=== PATIENT | male | born 1935 | race Caucasian/White ===

== ENCOUNTER → 2019-11-16 | Emergency (ER) | payer OTHER ==
[~2019-11-16] VITALS: Ht 180.3 cm; Wt 86.2 kg
[2019-11-16 09:08] LABS: Basophils # (auto) 0 10 ^3/uL (0-0.2); Basophils % (auto) 0.1 % (0.0-2.0); Eosinophils # (auto) 0 10 ^3/uL (0-0.8); Hemoglobin 12.7 g/dL (13.5-17.5); Lymphocytes # (auto) 0.6 10 ^3/uL (0.4-5.4); Lymphocytes % (auto) 5.6 % (10.0-50.0); Mean Corpuscular Hemoglobin 31.6 pg (28.0-32.0); Mean Corpuscular Hgb Conc. 34.2 g/dL (32.0-36.0); Mean Corpuscular Volume 92.4 fL (80.0-100.0); Monocytes # (auto) 0.9 10 ^3/uL (0-1.3); Monocytes % (auto) 7.6 % (0.0-12.0); Neutrophils # (auto) 9.7 10 ^3/uL (1.6-8.6); Neutrophils % (auto) 86.7 % (37.0-80.0); Nucleated Red Blood Cells % 0.1 %; Platelet Count (auto) 191 10^3/uL (140-450); Red Blood Cells 4.01 10^6/uL (4.5-5.90); Red Cell Distribution Width 13.8 % (11.8-14.3); White Blood Cell 11.2 10^3/uL (4.4-10.8)
[2019-11-16 09:26] LABS: Albumin 3.9 g/dL (3.4-5.0); Calcium 9.1 mg/dL (8.5-10.1); Potassium 4.5 mmol/L (3.5-5.1)
[2019-11-16 09:32] LABS: Bilirubin, Total 0.7 mg/dL (0.2-1.0); Total Protein 7.6 g/dL (6.4-8.2)
[2019-11-16 11:05] LABS: Urine Bacteria NONE SEEN /hpf (None Seen); Urine Blood 1+ /uL (Negative); Urine Specific Gravity 1.011 (1.001-1.035); Urine WBC 9 /hpf (0 - 3)
[2019-11-16 12:30] VITALS: BP 160/53
== END | disposition home or self-care (01) ==
LOC: EDUNIT# 08:00 → EDBD 08:11 → ER 08:11
DX: F03.90 Unspecified dementia, unspecified severity, without behavioral disturbance, psychotic disturbance, mood disturbance, and anxiety (principal); N39.0 Urinary tract infection, site not specified; I10 Essential (primary) hypertension; E11.9 Type 2 diabetes mellitus without complications; I25.10 Atherosclerotic heart disease of native coronary artery without angina pectoris; Z88.8 Allergy status to other drugs, medicaments and biological substances
CPT/HCPCS: 36415; 70450; 71045; 73562; 74176; 80053; 81001; 84484; 85025; 93005

== ENCOUNTER 2019-11-24 13:40 | Inpatient (IN) | payer OTHER ==
[~2019-11-24] VITALS: Ht 170.2 cm; Wt 74.2 kg
[2019-11-24] MEDS ORDERED: SODIUM CHLORIDE 0.9% 1,000 ML IVB ONE (14:05)
[2019-11-24] MEDS ORDERED: TETANUS-DIPTH-ACEL PERTUSSIS 0.5ML SYR Tdap IM ONE (14:45)
[2019-11-24 14:59] LABS: Basophils # (auto) 0 10 ^3/uL (0-0.2); Basophils % (auto) 0.6 % (0.0-2.0); Eosinophils # (auto) 0.2 10 ^3/uL (0-0.8); Eosinophils % (auto) 3.1 % (0.0-7.0); Hematocrit 38.5 % (41.0-53.0); Hemoglobin 12.7 g/dL (13.5-17.5); Lymphocytes # (auto) 1.4 10 ^3/uL (0.4-5.4); Lymphocytes % (auto) 20.6 % (10.0-50.0); Mean Corpuscular Hemoglobin 30.7 pg (28.0-32.0); Mean Corpuscular Hgb Conc. 32.9 g/dL (32.0-36.0); Mean Corpuscular Volume 93.3 fL (80.0-100.0); Monocytes # (auto) 0.8 10 ^3/uL (0-1.3); Monocytes % (auto) 11.2 % (0.0-12.0); Neutrophils # (auto) 4.5 10 ^3/uL (1.6-8.6); Neutrophils % (auto) 64.5 % (37.0-80.0); Platelet Count (auto) 275 10^3/uL (140-450); Red Blood Cells 4.12 10^6/uL (4.5-5.90); Red Cell Distribution Width 14.1 % (11.8-14.3)
[2019-11-24 15:10] LABS: INR 1.01 (0.9-1.15); Partial Thromboplastin Time 26.2 sec (23.64-32.05)
[2019-11-24 15:17] LABS: Albumin 3.4 g/dL (3.4-5.0); Anion Gap 8 (5-15); Calcium 9.1 mg/dL (8.5-10.1); Carbon Dioxide 26 mmol/L (21-32); Chloride 108 mmol/L (98-107); Glucose 104 mg/dL (74-106); Magnesium 2.1 mg/dL (1.6-2.6); Potassium 4.1 mmol/L (3.5-5.1); Sodium 142 mmol/L (136-145)
[2019-11-24 15:23] LABS: Alanine Aminotransferase 38 U/L (16-61); Alkaline Phosphatase 85 U/L (45-117); Aspartate Aminotransferase 24 U/L (15-37); Bilirubin, Total 0.4 mg/dL (0.2-1.0); Blood Urea Nitrogen 22 mg/dL (7-18); GFR African American 87 mL/min; GFR Non-African American 72 mL/min; Total Protein 7.2 g/dL (6.4-8.2)
[2019-11-24 17:16] LABS: Urine Bacteria NONE SEEN /hpf (None Seen); Urine Blood Negative /uL (Negative); Urine Specific Gravity 1.015 (1.001-1.035); Urine WBC 51 /hpf (0 - 3); Urine WBC Clumps PRESENT /hpf (None Seen)
[2019-11-24] MEDS ORDERED: ONDANSETRON HCL 4 MG/2 ML VIAL IV PRN (17:45)
[2019-11-24] MEDS ORDERED: cefTRIAXone 1GM/50ML D5W 50 ML IV ONE ×2 (17:45)
[2019-11-24] MEDS ORDERED: MORPHINE SULF INJ 2 MG/ML SYRINGE 1ML IV PRN (17:45)
[2019-11-24] MEDS ORDERED: DEXTROSE (50%) 50ML SYRG IV PRN (17:45)
[2019-11-24] MEDS ORDERED: NITROGLYCERIN 0.4 MG SL TAB SL PRN (17:45)
[2019-11-24] MEDS: TAMSULOSIN HYDROCHLORIDE 0.4 MG CAP PO SCH (18:00)
[2019-11-24] MEDS: traMADol HCL 50 MG TAB PO PRN (18:44)
[2019-11-24] MEDS: SODIUM CHLORIDE 0.9% 1,000 ML IV SCH (18:45)
[2019-11-24 20:15] VITALS: BP 140/39
[2019-11-24] MEDS: ACCU-CHEK COMFORT CURVE STRIP VI SCH (22:00)
[2019-11-24] MEDS: InsuLIN REG 1unit/0.01ml Soln (100units/ml) SC SCH (23:24)
[2019-11-24 23:34] VITALS: BP 149/65
[2019-11-25] MEDS: SODIUM CHLORIDE 0.9% 1,000 ML IV SCH ×3 (03:15→20:58)
[2019-11-25 04:30] VITALS: BP 158/61
[2019-11-25 05:56] LABS: Albumin 3.1 g/dL (3.4-5.0); Calcium 8.5 mg/dL (8.5-10.1); Potassium 3.8 mmol/L (3.5-5.1)
[2019-11-25 06:10] LABS: Bilirubin, Total 0.3 mg/dL (0.2-1.0); Total Protein 6.4 g/dL (6.4-8.2)
[2019-11-25] MEDS: ACCU-CHEK COMFORT CURVE STRIP VI SCH ×4 (07:09→20:57)
[2019-11-25] MEDS: InsuLIN REG 1unit/0.01ml Soln (100units/ml) SC SCH ×4 (07:10→21:39)
[2019-11-25] MEDS ORDERED: IBUP600T27 PO (07:50)
[2019-11-25] MEDS ORDERED: HYDR1TAB97 PO (07:50)
[2019-11-25] MEDS ORDERED: GLIP5TAB12 PO ×2 (07:50→07:54)
[2019-11-25] MEDS ORDERED: LOSA-69 PO (07:50)
[2019-11-25] MEDS ORDERED: QUET25TA37 PO (07:50)
[2019-11-25] MEDS ORDERED: METF-370 PO (07:50)
[2019-11-25] MEDS ORDERED: AMLO5TAB15 PO (07:50)
[2019-11-25] MEDS ORDERED: RIS1T PO (07:50)
[2019-11-25] MEDS ORDERED: TAMS0.4C36 PO (07:50)
[2019-11-25] MEDS ORDERED: SERT-274 PO (07:50)
[2019-11-25] MEDS ORDERED: ASPI-404 PO (07:50)
[2019-11-25] MEDS ORDERED: TEMA7.5C PO (07:50)
[2019-11-25 08:00] VITALS: BP 152/85
[2019-11-25] MEDS: LABETALOL HCL 5 MG/ML 4ML SYRINGE IV PRN (08:03)
[2019-11-25] MEDS: ASPirin 81 mg TAB PO SCH (09:57)
[2019-11-25] MEDS: cefTRIAXone 1GM/50ML D5W 50 ML IV SCH (09:57)
[2019-11-25] MEDS ORDERED: risperiDONE 1 MG TAB PO SCH (10:00)
[2019-11-25 10:33] LABS: Basophils # (auto) 0.1 10 ^3/uL (0-0.2); Basophils % (auto) 1.2 % (0.0-2.0); Eosinophils # (auto) 0.2 10 ^3/uL (0-0.8); Eosinophils % (auto) 3.2 % (0.0-7.0); Hematocrit 37.7 % (41.0-53.0); Hemoglobin 12.3 g/dL (13.5-17.5); Lymphocytes # (auto) 1.4 10 ^3/uL (0.4-5.4); Lymphocytes % (auto) 20.9 % (10.0-50.0); Mean Corpuscular Hemoglobin 30.6 pg (28.0-32.0); Mean Corpuscular Hgb Conc. 32.7 g/dL (32.0-36.0); Mean Corpuscular Volume 93.5 fL (80.0-100.0); Monocytes # (auto) 0.7 10 ^3/uL (0-1.3); Monocytes % (auto) 9.8 % (0.0-12.0); Neutrophils # (auto) 4.4 10 ^3/uL (1.6-8.6); Neutrophils % (auto) 64.9 % (37.0-80.0); Nucleated Red Blood Cells % 0.1 %; Platelet Count (auto) 267 10^3/uL (140-450); Red Blood Cells 4.03 10^6/uL (4.5-5.90); Red Cell Distribution Width 14.2 % (11.8-14.3); White Blood Cell 6.7 10^3/uL (4.4-10.8)
[2019-11-25 12:00] VITALS: BP 135/81
[2019-11-25] MEDS: ACETAMINOPHEN 500 MG TAB PO PRN (15:22)
[2019-11-25] MEDS ORDERED: OXYBUTYNIN CHL 5 MG TAB PO ONE (16:45)
[2019-11-25] MEDS: TAMSULOSIN HYDROCHLORIDE 0.4 MG CAP PO SCH (16:59)
[2019-11-25 17:00] VITALS: BP 146/79
[2019-11-25] MEDS: risperiDONE 1 MG TAB PO SCH (21:39)
[2019-11-25] MEDS: OXYBUTYNIN CHL 5 MG TAB PO SCH (21:39)
[2019-11-25] MEDS: SERTRALINE HCL 50 MG TAB PO SCH (21:39)
[2019-11-25] MEDS: TEMAZEPAM 15 MG CAP PO PRN (21:39)
[2019-11-25 22:00] VITALS: BP 143/70
[2019-11-26 05:00] VITALS: BP 141/69
[2019-11-26] MEDS: OXYBUTYNIN CHL 5 MG TAB PO SCH ×3 (06:26→22:02)
[2019-11-26] MEDS: InsuLIN REG 1unit/0.01ml Soln (100units/ml) SC SCH ×4 (06:27→22:00)
[2019-11-26] MEDS: ACCU-CHEK COMFORT CURVE STRIP VI SCH ×4 (06:27→22:02)
[2019-11-26 08:00] VITALS: BP 137/87
[2019-11-26] MEDS: cefTRIAXone 1GM/50ML D5W 50 ML IV SCH (08:59)
[2019-11-26] MEDS: amLODIPine BESYLATE 5 MG TAB PO SCH (08:59)
[2019-11-26 09:00] VITALS: BP 137/87
[2019-11-26] MEDS: QUEtiapine FUMARATE 25 MG TAB PO SCH (09:00)
[2019-11-26] MEDS: LOSARTAN POTASSIUM 50 MG TAB PO SCH (09:00)
[2019-11-26] MEDS: ASPirin 81 mg TAB PO SCH (09:00)
[2019-11-26] MEDS: risperiDONE 1 MG TAB PO SCH ×2 (09:00→22:02)
[2019-11-26] MEDS: SODIUM CHLORIDE 0.9% 1,000 ML IV SCH ×2 (09:00→19:35)
[2019-11-26 13:00] VITALS: BP 153/75
[2019-11-26 17:00] VITALS: BP 154/74
[2019-11-26] MEDS: TAMSULOSIN HYDROCHLORIDE 0.4 MG CAP PO SCH (17:41)
[2019-11-26] MEDS: SERTRALINE HCL 50 MG TAB PO SCH (22:02)
[2019-11-27] MEDS: SODIUM CHLORIDE 0.9% 1,000 ML IV SCH ×2 (03:48→15:55)
[2019-11-27 05:39] LABS: Basophils # (auto) 0 10 ^3/uL (0-0.2); Basophils % (auto) 0.5 % (0.0-2.0); Eosinophils # (auto) 0.1 10 ^3/uL (0-0.8); Eosinophils % (auto) 2.3 % (0.0-7.0); Hematocrit 35.9 % (41.0-53.0); Hemoglobin 12.2 g/dL (13.5-17.5); Lymphocytes # (auto) 1.3 10 ^3/uL (0.4-5.4); Lymphocytes % (auto) 20.5 % (10.0-50.0); Mean Corpuscular Hemoglobin 31.4 pg (28.0-32.0); Mean Corpuscular Volume 92.3 fL (80.0-100.0); Monocytes # (auto) 0.6 10 ^3/uL (0-1.3); Monocytes % (auto) 9.4 % (0.0-12.0); Neutrophils # (auto) 4.3 10 ^3/uL (1.6-8.6); Neutrophils % (auto) 67.3 % (37.0-80.0); Platelet Count (auto) 254 10^3/uL (140-450); Red Blood Cells 3.89 10^6/uL (4.5-5.90); Red Cell Distribution Width 13.9 % (11.8-14.3); White Blood Cell 6.4 10^3/uL (4.4-10.8)
[2019-11-27 05:53] LABS: Albumin 3.1 g/dL (3.4-5.0); Calcium 8.1 mg/dL (8.5-10.1); Potassium 3.6 mmol/L (3.5-5.1)
[2019-11-27 05:57] LABS: Bilirubin, Total 0.7 mg/dL (0.2-1.0); Total Protein 6.3 g/dL (6.4-8.2)
[2019-11-27] MEDS: InsuLIN REG 1unit/0.01ml Soln (100units/ml) SC SCH ×4 (06:20→22:00)
[2019-11-27] MEDS: OXYBUTYNIN CHL 5 MG TAB PO SCH ×3 (06:20→22:03)
[2019-11-27] MEDS: ACCU-CHEK COMFORT CURVE STRIP VI SCH ×4 (06:20→22:04)
[2019-11-27 07:08] LABS: BUN/Creatinine Ratio 14.1
[2019-11-27 08:00] VITALS: BP 150/77
[2019-11-27 09:00] VITALS: BP 150/77
[2019-11-27] MEDS: cefTRIAXone 1GM/50ML D5W 50 ML IV SCH (09:33)
[2019-11-27] MEDS: amLODIPine BESYLATE 5 MG TAB PO SCH (09:34)
[2019-11-27] MEDS: QUEtiapine FUMARATE 25 MG TAB PO SCH (09:35)
[2019-11-27] MEDS: LOSARTAN POTASSIUM 50 MG TAB PO SCH (09:35)
[2019-11-27] MEDS: ASPirin 81 mg TAB PO SCH (09:35)
[2019-11-27] MEDS: risperiDONE 1 MG TAB PO SCH ×2 (09:35→22:03)
[2019-11-27 13:00] VITALS: BP 143/70
[2019-11-27 16:32] VITALS: BP 156/68
[2019-11-27] MEDS: TAMSULOSIN HYDROCHLORIDE 0.4 MG CAP PO SCH (18:35)
[2019-11-27 21:41] VITALS: BP 140/81
[2019-11-27] MEDS: SERTRALINE HCL 50 MG TAB PO SCH (22:04)
[2019-11-28] MEDS: SODIUM CHLORIDE 0.9% 1,000 ML IV SCH ×3 (02:02→21:35)
[2019-11-28 05:05] VITALS: BP 125/55
[2019-11-28 06:10] LABS: Basophils # (auto) 0 10 ^3/uL (0-0.2); Basophils % (auto) 0.6 % (0.0-2.0); Eosinophils # (auto) 0.2 10 ^3/uL (0-0.8); Hematocrit 35.3 % (41.0-53.0); Hemoglobin 11.9 g/dL (13.5-17.5); Lymphocytes # (auto) 1.1 10 ^3/uL (0.4-5.4); Lymphocytes % (auto) 18.1 % (10.0-50.0); Mean Corpuscular Hemoglobin 31.2 pg (28.0-32.0); Mean Corpuscular Hgb Conc. 33.8 g/dL (32.0-36.0); Mean Corpuscular Volume 92.1 fL (80.0-100.0); Monocytes # (auto) 0.6 10 ^3/uL (0-1.3); Monocytes % (auto) 9.6 % (0.0-12.0); Neutrophils # (auto) 4.1 10 ^3/uL (1.6-8.6); Neutrophils % (auto) 68.7 % (37.0-80.0); Platelet Count (auto) 264 10^3/uL (140-450); Red Blood Cells 3.83 10^6/uL (4.5-5.90); Red Cell Distribution Width 13.5 % (11.8-14.3); White Blood Cell 5.9 10^3/uL (4.4-10.8)
[2019-11-28] MEDS: ACCU-CHEK COMFORT CURVE STRIP VI SCH ×4 (06:24→21:54)
[2019-11-28] MEDS: OXYBUTYNIN CHL 5 MG TAB PO SCH ×3 (06:24→21:54)
[2019-11-28] MEDS: InsuLIN REG 1unit/0.01ml Soln (100units/ml) SC SCH ×4 (06:25→22:09)
[2019-11-28 06:28] LABS: Calcium 7.8 mg/dL (8.5-10.1); Potassium 3.4 mmol/L (3.5-5.1)
[2019-11-28 06:31] LABS: BUN/Creatinine Ratio 14.6; Bilirubin, Total 0.7 mg/dL (0.2-1.0); Total Protein 6.4 g/dL (6.4-8.2)
[2019-11-28 08:00] VITALS: BP 147/74
[2019-11-28] MEDS: cefTRIAXone 1GM/50ML D5W 50 ML IV SCH (09:17)
[2019-11-28] MEDS: ASPirin 81 mg TAB PO SCH (09:40)
[2019-11-28] MEDS: QUEtiapine FUMARATE 25 MG TAB PO SCH ×2 (09:40→12:30)
[2019-11-28] MEDS: risperiDONE 1 MG TAB PO SCH ×3 (09:40→21:54)
[2019-11-28] MEDS: amLODIPine BESYLATE 5 MG TAB PO SCH (09:40)
[2019-11-28] MEDS: LOSARTAN POTASSIUM 50 MG TAB PO SCH ×2 (09:40→12:38)
[2019-11-28] MEDS ORDERED: HALOPERIDOL LACTATE 5 MG/ML INJ VIAL IM PRN (12:15)
[2019-11-28 13:00] VITALS: BP 133/55
[2019-11-28 17:00] VITALS: BP 153/89
[2019-11-28] MEDS: TAMSULOSIN HYDROCHLORIDE 0.4 MG CAP PO SCH (17:50)
[2019-11-28] MEDS: SERTRALINE HCL 50 MG TAB PO SCH (21:54)
[2019-11-28 22:00] VITALS: BP 155/84
[2019-11-29 05:05] VITALS: BP 159/84
[2019-11-29 05:25] LABS: Basophils # (auto) 0 10 ^3/uL (0-0.2); Basophils % (auto) 0.6 % (0.0-2.0); Eosinophils # (auto) 0.3 10 ^3/uL (0-0.8); Eosinophils % (auto) 4.3 % (0.0-7.0); Hematocrit 34.8 % (41.0-53.0); Hemoglobin 11.9 g/dL (13.5-17.5); Lymphocytes # (auto) 1.3 10 ^3/uL (0.4-5.4); Lymphocytes % (auto) 21.1 % (10.0-50.0); Mean Corpuscular Hemoglobin 31.4 pg (28.0-32.0); Mean Corpuscular Hgb Conc. 34.2 g/dL (32.0-36.0); Monocytes # (auto) 0.6 10 ^3/uL (0-1.3); Monocytes % (auto) 9.9 % (0.0-12.0); Neutrophils # (auto) 4.1 10 ^3/uL (1.6-8.6); Neutrophils % (auto) 64.1 % (37.0-80.0); Platelet Count (auto) 264 10^3/uL (140-450); Red Blood Cells 3.78 10^6/uL (4.5-5.90); Red Cell Distribution Width 13.8 % (11.8-14.3); White Blood Cell 6.3 10^3/uL (4.4-10.8)
[2019-11-29 05:50] LABS: Albumin 2.9 g/dL (3.4-5.0); Calcium 8.1 mg/dL (8.5-10.1); Potassium 3.5 mmol/L (3.5-5.1)
[2019-11-29 05:54] LABS: BUN/Creatinine Ratio 21.4; Bilirubin, Total 0.5 mg/dL (0.2-1.0); Total Protein 6.2 g/dL (6.4-8.2)
[2019-11-29] MEDS: OXYBUTYNIN CHL 5 MG TAB PO SCH ×3 (06:23→22:08)
[2019-11-29] MEDS: ACCU-CHEK COMFORT CURVE STRIP VI SCH ×4 (06:24→22:11)
[2019-11-29] MEDS: InsuLIN REG 1unit/0.01ml Soln (100units/ml) SC SCH ×4 (06:25→22:12)
[2019-11-29] MEDS: risperiDONE 1 MG TAB PO SCH ×2 (09:13→22:07)
[2019-11-29] MEDS: QUEtiapine FUMARATE 25 MG TAB PO SCH (09:13)
[2019-11-29] MEDS: ASPirin 81 mg TAB PO SCH (09:13)
[2019-11-29] MEDS: LOSARTAN POTASSIUM 50 MG TAB PO SCH (09:14)
[2019-11-29] MEDS: amLODIPine BESYLATE 5 MG TAB PO SCH (09:15)
[2019-11-29] MEDS: cefTRIAXone 1GM/50ML D5W 50 ML IV SCH (09:17)
[2019-11-29 09:39] VITALS: BP 149/68
[2019-11-29] MEDS: SODIUM CHLORIDE 0.9% 1,000 ML IV SCH ×2 (12:43→17:28)
[2019-11-29 13:00] VITALS: BP 170/68
[2019-11-29 17:00] VITALS: BP 156/58
[2019-11-29] MEDS: TAMSULOSIN HYDROCHLORIDE 0.4 MG CAP PO SCH (17:28)
[2019-11-29 22:00] VITALS: BP 145/68
[2019-11-29] MEDS: SERTRALINE HCL 50 MG TAB PO SCH (22:08)
[2019-11-29] MEDS: DONEPEZIL HYDROCHLORIDE 5 MG TAB PO SCH (22:09)
[2019-11-29] MEDS: TEMAZEPAM 15 MG CAP PO PRN (23:49)
[2019-11-30] VITALS (7 sets, daily range): BP systolic 109–148; BP diastolic 63–79
[2019-11-30] MEDS: SODIUM CHLORIDE 0.9% 1,000 ML IV SCH ×3 (03:40→23:40)
[2019-11-30] MEDS: OXYBUTYNIN CHL 5 MG TAB PO SCH ×3 (06:01→21:53)
[2019-11-30] MEDS: ACCU-CHEK COMFORT CURVE STRIP VI SCH ×4 (06:38→21:54)
[2019-11-30] MEDS: InsuLIN REG 1unit/0.01ml Soln (100units/ml) SC SCH ×4 (06:39→21:55)
[2019-11-30] MEDS: cefTRIAXone 1GM/50ML D5W 50 ML IV SCH (09:05)
[2019-11-30] MEDS: LOSARTAN POTASSIUM 50 MG TAB PO SCH (09:06)
[2019-11-30] MEDS: risperiDONE 1 MG TAB PO SCH ×2 (09:07→21:54)
[2019-11-30] MEDS: QUEtiapine FUMARATE 25 MG TAB PO SCH (09:07)
[2019-11-30] MEDS: amLODIPine BESYLATE 5 MG TAB PO SCH (09:07)
[2019-11-30] MEDS: ASPirin 81 mg TAB PO SCH (09:07)
[2019-11-30] MEDS: TAMSULOSIN HYDROCHLORIDE 0.4 MG CAP PO SCH (17:40)
[2019-11-30] MEDS: DONEPEZIL HYDROCHLORIDE 5 MG TAB PO SCH (21:54)
[2019-11-30] MEDS: SERTRALINE HCL 50 MG TAB PO SCH (21:54)
[2019-12-01] VITALS (7 sets, daily range): BP systolic 124–138; BP diastolic 57–79
[2019-12-01] MEDS: OXYBUTYNIN CHL 5 MG TAB PO SCH ×3 (06:00→21:15)
[2019-12-01] MEDS: ACCU-CHEK COMFORT CURVE STRIP VI SCH ×4 (06:46→21:16)
[2019-12-01] MEDS: InsuLIN REG 1unit/0.01ml Soln (100units/ml) SC SCH ×4 (06:47→21:20)
[2019-12-01] MEDS: cefTRIAXone 1GM/50ML D5W 50 ML IV SCH (09:52)
[2019-12-01] MEDS: LOSARTAN POTASSIUM 50 MG TAB PO SCH (09:53)
[2019-12-01] MEDS: amLODIPine BESYLATE 5 MG TAB PO SCH (09:53)
[2019-12-01] MEDS: QUEtiapine FUMARATE 25 MG TAB PO SCH (09:53)
[2019-12-01] MEDS: risperiDONE 1 MG TAB PO SCH ×2 (09:53→21:15)
[2019-12-01] MEDS: ASPirin 81 mg TAB PO SCH (09:53)
[2019-12-01] MEDS: SODIUM CHLORIDE 0.9% 1,000 ML IV SCH ×2 (12:34→19:35)
[2019-12-01] MEDS: TAMSULOSIN HYDROCHLORIDE 0.4 MG CAP PO SCH (17:37)
[2019-12-01] MEDS: DONEPEZIL HYDROCHLORIDE 5 MG TAB PO SCH (21:15)
[2019-12-01] MEDS: SERTRALINE HCL 50 MG TAB PO SCH (21:16)
[2019-12-01] MEDS: traMADol HCL 50 MG TAB PO PRN (23:23)
[2019-12-02 05:00] VITALS: BP 136/73
[2019-12-02] MEDS: SODIUM CHLORIDE 0.9% 1,000 ML IV SCH ×2 (06:26→14:08)
[2019-12-02] MEDS: OXYBUTYNIN CHL 5 MG TAB PO SCH ×3 (06:26→21:37)
[2019-12-02] MEDS: ACCU-CHEK COMFORT CURVE STRIP VI SCH ×4 (06:27→21:38)
[2019-12-02] MEDS: InsuLIN REG 1unit/0.01ml Soln (100units/ml) SC SCH ×4 (06:30→21:38)
[2019-12-02 09:00] VITALS: BP 143/66
[2019-12-02] MEDS: cefTRIAXone 1GM/50ML D5W 50 ML IV SCH (09:39)
[2019-12-02] MEDS: LOSARTAN POTASSIUM 50 MG TAB PO SCH (09:40)
[2019-12-02] MEDS: ASPirin 81 mg TAB PO SCH (09:40)
[2019-12-02] MEDS: amLODIPine BESYLATE 5 MG TAB PO SCH (09:40)
[2019-12-02] MEDS: QUEtiapine FUMARATE 25 MG TAB PO SCH (09:41)
[2019-12-02] MEDS: risperiDONE 1 MG TAB PO SCH ×2 (09:41→21:37)
[2019-12-02 13:09] VITALS: BP 136/61
[2019-12-02 16:00] VITALS: BP 143/66
[2019-12-02] MEDS: TAMSULOSIN HYDROCHLORIDE 0.4 MG CAP PO SCH (17:31)
[2019-12-02] MEDS: DONEPEZIL HYDROCHLORIDE 5 MG TAB PO SCH (21:37)
[2019-12-02] MEDS: SERTRALINE HCL 50 MG TAB PO SCH (21:38)
[2019-12-02] MEDS: LABETALOL HCL 5 MG/ML 4ML SYRINGE IV PRN (21:39)
[2019-12-02] MEDS: traMADol HCL 50 MG TAB PO PRN (21:47)
[2019-12-02 22:00] VITALS: BP 156/68
[2019-12-03] MEDS: SODIUM CHLORIDE 0.9% 1,000 ML IV SCH ×3 (01:11→21:35)
[2019-12-03 05:16] VITALS: BP 129/68
[2019-12-03] MEDS: InsuLIN REG 1unit/0.01ml Soln (100units/ml) SC SCH ×4 (06:35→21:52)
[2019-12-03] MEDS: OXYBUTYNIN CHL 5 MG TAB PO SCH ×3 (06:38→21:46)
[2019-12-03] MEDS: ACCU-CHEK COMFORT CURVE STRIP VI SCH ×4 (06:38→21:47)
[2019-12-03] MEDS: cefTRIAXone 1GM/50ML D5W 50 ML IV SCH (09:25)
[2019-12-03] MEDS: risperiDONE 1 MG TAB PO SCH ×2 (09:26→21:46)
[2019-12-03] MEDS: ASPirin 81 mg TAB PO SCH (09:26)
[2019-12-03] MEDS: amLODIPine BESYLATE 5 MG TAB PO SCH (09:27)
[2019-12-03] MEDS: LOSARTAN POTASSIUM 50 MG TAB PO SCH (09:28)
[2019-12-03] MEDS: QUEtiapine FUMARATE 25 MG TAB PO SCH (09:29)
[2019-12-03] MEDS: traMADol HCL 50 MG TAB PO PRN ×3 (13:35→22:12)
[2019-12-03 17:04] VITALS: BP 149/68
[2019-12-03] MEDS: TAMSULOSIN HYDROCHLORIDE 0.4 MG CAP PO SCH (17:42)
[2019-12-03 21:29] VITALS: BP 144/73
[2019-12-03] MEDS: DONEPEZIL HYDROCHLORIDE 5 MG TAB PO SCH (21:45)
[2019-12-03] MEDS: DOCUSATE SOD 100 MG CAP PO SCH (21:46)
[2019-12-03] MEDS: SERTRALINE HCL 50 MG TAB PO SCH (21:47)
[2019-12-04 05:24] VITALS: BP 143/66
[2019-12-04] MEDS: ACCU-CHEK COMFORT CURVE STRIP VI SCH ×4 (06:15→21:53)
[2019-12-04] MEDS: OXYBUTYNIN CHL 5 MG TAB PO SCH ×3 (06:15→21:52)
[2019-12-04] MEDS: InsuLIN REG 1unit/0.01ml Soln (100units/ml) SC SCH ×4 (06:18→21:53)
[2019-12-04 06:22] LABS: Basophils # (auto) 0 10 ^3/uL (0-0.2); Basophils % (auto) 0.6 % (0.0-2.0); Eosinophils # (auto) 0.3 10 ^3/uL (0-0.8); Eosinophils % (auto) 4.8 % (0.0-7.0); Hemoglobin 11.7 g/dL (13.5-17.5); Lymphocytes # (auto) 1.1 10 ^3/uL (0.4-5.4); Lymphocytes % (auto) 17.8 % (10.0-50.0); Mean Corpuscular Hemoglobin 31.2 pg (28.0-32.0); Mean Corpuscular Hgb Conc. 33.4 g/dL (32.0-36.0); Mean Corpuscular Volume 93.4 fL (80.0-100.0); Monocytes # (auto) 0.7 10 ^3/uL (0-1.3); Monocytes % (auto) 11.2 % (0.0-12.0); Neutrophils # (auto) 4.2 10 ^3/uL (1.6-8.6); Neutrophils % (auto) 65.6 % (37.0-80.0); Platelet Count (auto) 242 10^3/uL (140-450); Red Blood Cells 3.75 10^6/uL (4.5-5.90); White Blood Cell 6.4 10^3/uL (4.4-10.8)
[2019-12-04] MEDS: SODIUM CHLORIDE 0.9% 1,000 ML IV SCH ×2 (07:35→12:34)
[2019-12-04] MEDS: DOCUSATE SOD 100 MG CAP PO SCH ×2 (09:20→21:52)
[2019-12-04] MEDS: ASPirin 81 mg TAB PO SCH (09:20)
[2019-12-04] MEDS: risperiDONE 1 MG TAB PO SCH ×2 (09:20→21:52)
[2019-12-04] MEDS: QUEtiapine FUMARATE 25 MG TAB PO SCH (09:21)
[2019-12-04] MEDS: amLODIPine BESYLATE 5 MG TAB PO SCH (09:22)
[2019-12-04] MEDS: LOSARTAN POTASSIUM 50 MG TAB PO SCH (09:23)
[2019-12-04] MEDS: traMADol HCL 50 MG TAB PO PRN ×2 (09:23→19:45)
[2019-12-04] MEDS: cefTRIAXone 1GM/50ML D5W 50 ML IV SCH (09:23)
[2019-12-04 09:36] VITALS: BP 93/56
[2019-12-04 12:54] VITALS: BP 139/70
[2019-12-04 17:00] VITALS: BP 164/87
[2019-12-04] MEDS: TAMSULOSIN HYDROCHLORIDE 0.4 MG CAP PO SCH (18:11)
[2019-12-04] MEDS: LABETALOL HCL 5 MG/ML 4ML SYRINGE IV PRN (18:11)
[2019-12-04] MEDS ORDERED: POLYETHYLENE GLYCOL 17 GM PWDR PO ONE (19:30)
[2019-12-04] MEDS: DONEPEZIL HYDROCHLORIDE 5 MG TAB PO SCH (21:52)
[2019-12-04] MEDS: SERTRALINE HCL 50 MG TAB PO SCH (21:53)
[2019-12-04 22:05] VITALS: BP 128/64
[2019-12-05] MEDS: SODIUM CHLORIDE 0.9% 1,000 ML IV SCH ×3 (04:54→22:14)
[2019-12-05 05:05] VITALS: BP 134/84
[2019-12-05] MEDS: OXYBUTYNIN CHL 5 MG TAB PO SCH ×3 (05:44→22:06)
[2019-12-05] MEDS: ACCU-CHEK COMFORT CURVE STRIP VI SCH ×4 (06:35→22:14)
[2019-12-05] MEDS: InsuLIN REG 1unit/0.01ml Soln (100units/ml) SC SCH ×4 (06:44→22:24)
[2019-12-05] MEDS: risperiDONE 1 MG TAB PO SCH ×2 (08:51→22:06)
[2019-12-05] MEDS: DOCUSATE SOD 100 MG CAP PO SCH ×2 (08:51→22:06)
[2019-12-05] MEDS: ASPirin 81 mg TAB PO SCH (08:52)
[2019-12-05] MEDS: QUEtiapine FUMARATE 25 MG TAB PO SCH (08:53)
[2019-12-05] MEDS: amLODIPine BESYLATE 5 MG TAB PO SCH (08:54)
[2019-12-05] MEDS: LOSARTAN POTASSIUM 50 MG TAB PO SCH (08:56)
[2019-12-05 09:00] VITALS: BP 119/56
[2019-12-05] MEDS ORDERED: DONEPEZIL HYDROCHLORIDE 5 MG TAB PO SCH (09:00)
[2019-12-05] MEDS: cefTRIAXone 1GM/50ML D5W 50 ML IV SCH (09:01)
[2019-12-05 13:00] VITALS: BP 100/46
[2019-12-05 17:01] VITALS: BP 104/50
[2019-12-05] MEDS: TAMSULOSIN HYDROCHLORIDE 0.4 MG CAP PO SCH (18:09)
[2019-12-05 21:00] VITALS: BP 136/65
[2019-12-05] MEDS: SERTRALINE HCL 50 MG TAB PO SCH (22:06)
[2019-12-05] MEDS: DONEPEZIL HYDROCHLORIDE 5 MG TAB PO SCH (22:07)
[2019-12-06 05:00] VITALS: BP 123/66
[2019-12-06] MEDS: OXYBUTYNIN CHL 5 MG TAB PO SCH ×3 (06:34→21:45)
[2019-12-06] MEDS: ACCU-CHEK COMFORT CURVE STRIP VI SCH ×4 (06:44→21:46)
[2019-12-06] MEDS: InsuLIN REG 1unit/0.01ml Soln (100units/ml) SC SCH ×4 (06:45→21:56)
[2019-12-06 09:00] VITALS: BP 139/79
[2019-12-06] MEDS: risperiDONE 1 MG TAB PO SCH ×2 (09:31→21:46)
[2019-12-06] MEDS: SODIUM CHLORIDE 0.9% 1,000 ML IV SCH ×2 (09:31→19:35)
[2019-12-06] MEDS: cefTRIAXone 1GM/50ML D5W 50 ML IV SCH (09:31)
[2019-12-06] MEDS: ASPirin 81 mg TAB PO SCH (09:31)
[2019-12-06] MEDS: LOSARTAN POTASSIUM 50 MG TAB PO SCH (09:32)
[2019-12-06] MEDS: DOCUSATE SOD 100 MG CAP PO SCH ×2 (09:32→21:45)
[2019-12-06] MEDS: amLODIPine BESYLATE 5 MG TAB PO SCH (09:33)
[2019-12-06] MEDS: QUEtiapine FUMARATE 25 MG TAB PO SCH (09:34)
[2019-12-06 13:00] VITALS: BP 152/74
[2019-12-06] MEDS: ACETAMINOPHEN 500 MG TAB PO PRN (14:06)
[2019-12-06 17:00] VITALS: BP 126/59
[2019-12-06] MEDS: TAMSULOSIN HYDROCHLORIDE 0.4 MG CAP PO SCH (18:06)
[2019-12-06] MEDS: SERTRALINE HCL 50 MG TAB PO SCH (21:46)
[2019-12-06] MEDS: DONEPEZIL HYDROCHLORIDE 5 MG TAB PO SCH (21:46)
[2019-12-06 22:00] VITALS: BP 145/92
[2019-12-07] MEDS: SODIUM CHLORIDE 0.9% 1,000 ML IV SCH ×2 (05:13→16:22)
[2019-12-07 05:47] VITALS: BP 134/66
[2019-12-07] MEDS: ACCU-CHEK COMFORT CURVE STRIP VI SCH ×4 (06:22→22:11)
[2019-12-07] MEDS: OXYBUTYNIN CHL 5 MG TAB PO SCH ×3 (06:22→22:10)
[2019-12-07] MEDS: InsuLIN REG 1unit/0.01ml Soln (100units/ml) SC SCH ×4 (06:23→22:11)
[2019-12-07 08:57] VITALS: BP 127/68
[2019-12-07] MEDS: cefTRIAXone 1GM/50ML D5W 50 ML IV SCH (09:25)
[2019-12-07] MEDS: risperiDONE 1 MG TAB PO SCH ×2 (09:26→22:10)
[2019-12-07] MEDS: DOCUSATE SOD 100 MG CAP PO SCH ×2 (09:26→22:10)
[2019-12-07] MEDS: ASPirin 81 mg TAB PO SCH (09:26)
[2019-12-07] MEDS: amLODIPine BESYLATE 5 MG TAB PO SCH (09:30)
[2019-12-07] MEDS: QUEtiapine FUMARATE 25 MG TAB PO SCH (09:30)
[2019-12-07] MEDS: LOSARTAN POTASSIUM 50 MG TAB PO SCH (09:31)
[2019-12-07 13:00] VITALS: BP 136/57
[2019-12-07 16:34] VITALS: BP 128/52
[2019-12-07] MEDS: TAMSULOSIN HYDROCHLORIDE 0.4 MG CAP PO SCH (17:26)
[2019-12-07 22:00] VITALS: BP 131/73
[2019-12-07] MEDS: DONEPEZIL HYDROCHLORIDE 5 MG TAB PO SCH (22:10)
[2019-12-07] MEDS: SERTRALINE HCL 50 MG TAB PO SCH (22:11)
[2019-12-08] MEDS: SODIUM CHLORIDE 0.9% 1,000 ML IV SCH (01:35)
[2019-12-08 05:00] VITALS: BP 145/70
[2019-12-08] MEDS: OXYBUTYNIN CHL 5 MG TAB PO SCH ×3 (05:33→21:52)
[2019-12-08] MEDS: InsuLIN REG 1unit/0.01ml Soln (100units/ml) SC SCH ×4 (06:38→21:55)
[2019-12-08] MEDS: ACCU-CHEK COMFORT CURVE STRIP VI SCH ×4 (06:39→21:54)
[2019-12-08] MEDS: cefTRIAXone 1GM/50ML D5W 50 ML IV SCH (09:10)
[2019-12-08] MEDS: DOCUSATE SOD 100 MG CAP PO SCH ×2 (09:10→21:52)
[2019-12-08] MEDS: risperiDONE 1 MG TAB PO SCH ×2 (09:10→21:52)
[2019-12-08] MEDS: ASPirin 81 mg TAB PO SCH (09:10)
[2019-12-08 09:11] VITALS: BP 133/72
[2019-12-08] MEDS: LOSARTAN POTASSIUM 50 MG TAB PO SCH (09:11)
[2019-12-08] MEDS: QUEtiapine FUMARATE 25 MG TAB PO SCH (09:11)
[2019-12-08] MEDS: amLODIPine BESYLATE 5 MG TAB PO SCH (09:11)
[2019-12-08 12:20] VITALS: BP 128/70
[2019-12-08 16:30] VITALS: BP 134/60
[2019-12-08] MEDS: TAMSULOSIN HYDROCHLORIDE 0.4 MG CAP PO SCH (18:04)
[2019-12-08 21:07] VITALS: BP 131/70
[2019-12-08] MEDS: TEMAZEPAM 15 MG CAP PO PRN (21:52)
[2019-12-08] MEDS: DONEPEZIL HYDROCHLORIDE 5 MG TAB PO SCH (21:52)
[2019-12-08] MEDS: SERTRALINE HCL 50 MG TAB PO SCH (21:54)
[2019-12-09] MEDS: SODIUM CHLORIDE 0.9% 1,000 ML IV SCH ×3 (01:35→18:25)
[2019-12-09 05:33] VITALS: BP 149/73
[2019-12-09] MEDS: OXYBUTYNIN CHL 5 MG TAB PO SCH ×3 (06:46→21:43)
[2019-12-09] MEDS: ACCU-CHEK COMFORT CURVE STRIP VI SCH ×4 (06:53→21:40)
[2019-12-09] MEDS: InsuLIN REG 1unit/0.01ml Soln (100units/ml) SC SCH ×4 (06:58→21:40)
[2019-12-09 08:11] VITALS: BP 149/82
[2019-12-09] MEDS: risperiDONE 1 MG TAB PO SCH ×2 (09:04→21:43)
[2019-12-09] MEDS: cefTRIAXone 1GM/50ML D5W 50 ML IV SCH (09:04)
[2019-12-09] MEDS: DOCUSATE SOD 100 MG CAP PO SCH ×2 (09:04→21:43)
[2019-12-09] MEDS: ASPirin 81 mg TAB PO SCH (09:04)
[2019-12-09] MEDS: QUEtiapine FUMARATE 25 MG TAB PO SCH (09:05)
[2019-12-09] MEDS: amLODIPine BESYLATE 5 MG TAB PO SCH (09:05)
[2019-12-09] MEDS: LOSARTAN POTASSIUM 50 MG TAB PO SCH (09:06)
[2019-12-09 13:26] VITALS: BP 161/88
[2019-12-09 17:04] VITALS: BP 107/46
[2019-12-09] MEDS: TAMSULOSIN HYDROCHLORIDE 0.4 MG CAP PO SCH (18:25)
[2019-12-09] MEDS: SERTRALINE HCL 50 MG TAB PO SCH (21:43)
[2019-12-09] MEDS: DONEPEZIL HYDROCHLORIDE 5 MG TAB PO SCH (21:43)
[2019-12-09 21:57] VITALS: BP 128/63
[2019-12-10] MEDS: TEMAZEPAM 15 MG CAP PO PRN (00:48)
[2019-12-10] MEDS: SODIUM CHLORIDE 0.9% 1,000 ML IV SCH ×3 (03:35→23:35)
[2019-12-10 05:00] VITALS: BP 141/56
[2019-12-10] MEDS: InsuLIN REG 1unit/0.01ml Soln (100units/ml) SC SCH ×4 (06:27→21:09)
[2019-12-10] MEDS: OXYBUTYNIN CHL 5 MG TAB PO SCH ×3 (06:27→21:14)
[2019-12-10] MEDS: ACCU-CHEK COMFORT CURVE STRIP VI SCH ×4 (06:28→21:10)
[2019-12-10 08:49] VITALS: BP 148/76
[2019-12-10] MEDS: cefTRIAXone 1GM/50ML D5W 50 ML IV SCH (09:01)
[2019-12-10] MEDS: QUEtiapine FUMARATE 25 MG TAB PO SCH (09:02)
[2019-12-10] MEDS: risperiDONE 1 MG TAB PO SCH ×2 (09:02→21:14)
[2019-12-10] MEDS: ASPirin 81 mg TAB PO SCH (09:02)
[2019-12-10] MEDS: DOCUSATE SOD 100 MG CAP PO SCH ×2 (09:02→21:14)
[2019-12-10] MEDS: LOSARTAN POTASSIUM 50 MG TAB PO SCH (09:03)
[2019-12-10] MEDS: amLODIPine BESYLATE 5 MG TAB PO SCH (09:03)
[2019-12-10] MEDS ORDERED: amLODIPine BESYLATE 5 MG TAB PO ONE (12:00)
[2019-12-10] MEDS ORDERED: hydrALAZINE HCL 20 MG/ML VL IV SCH (12:00)
[2019-12-10] MEDS ORDERED: MAGNESIUM SULFATE 1GM/100ML 100 ML IV ONE (12:00)
[2019-12-10] MEDS ORDERED: hydrALAZINE HCL 20 MG/ML VL IV PRN (12:30)
[2019-12-10 12:55] VITALS: BP 131/95
[2019-12-10 17:00] VITALS: BP 158/89
[2019-12-10] MEDS: TAMSULOSIN HYDROCHLORIDE 0.4 MG CAP PO SCH (18:08)
[2019-12-10 21:04] VITALS: BP 141/60
[2019-12-10] MEDS: DONEPEZIL HYDROCHLORIDE 5 MG TAB PO SCH (21:14)
[2019-12-10] MEDS: SERTRALINE HCL 50 MG TAB PO SCH (21:15)
[2019-12-11 05:02] VITALS: BP 154/70
[2019-12-11] MEDS: ACCU-CHEK COMFORT CURVE STRIP VI SCH ×4 (06:24→21:34)
[2019-12-11] MEDS: OXYBUTYNIN CHL 5 MG TAB PO SCH ×3 (06:24→21:26)
[2019-12-11] MEDS: InsuLIN REG 1unit/0.01ml Soln (100units/ml) SC SCH ×4 (06:24→21:25)
[2019-12-11 08:31] VITALS: BP 132/67
[2019-12-11] MEDS: DOCUSATE SOD 100 MG CAP PO SCH ×2 (09:01→21:26)
[2019-12-11] MEDS: ASPirin 81 mg TAB PO SCH (09:02)
[2019-12-11] MEDS: LOSARTAN POTASSIUM 50 MG TAB PO SCH (09:02)
[2019-12-11] MEDS: QUEtiapine FUMARATE 25 MG TAB PO SCH (09:02)
[2019-12-11] MEDS: risperiDONE 1 MG TAB PO SCH ×2 (09:02→21:26)
[2019-12-11] MEDS: amLODIPine BESYLATE 5 MG TAB PO SCH (09:03)
[2019-12-11] MEDS: SODIUM CHLORIDE 0.9% 1,000 ML IV SCH (09:05)
[2019-12-11] MEDS ORDERED: amLODIPine BESYLATE 5 MG TAB PO SCH (10:00)
[2019-12-11 11:20] LABS: Potassium 3.7 mmol/L (3.5-5.1)
[2019-12-11 13:10] VITALS: BP 126/81
[2019-12-11 16:32] VITALS: BP 139/74
[2019-12-11] MEDS: TAMSULOSIN HYDROCHLORIDE 0.4 MG CAP PO SCH (17:53)
[2019-12-11] MEDS: SERTRALINE HCL 50 MG TAB PO SCH (21:27)
[2019-12-11] MEDS: DONEPEZIL HYDROCHLORIDE 5 MG TAB PO SCH (21:27)
[2019-12-11 22:00] VITALS: BP 144/61
[2019-12-12] MEDS: SODIUM CHLORIDE 0.9% 1,000 ML IV SCH ×3 (01:52→15:49)
[2019-12-12 05:00] VITALS: BP 144/68
[2019-12-12] MEDS: InsuLIN REG 1unit/0.01ml Soln (100units/ml) SC SCH ×3 (06:04→16:47)
[2019-12-12] MEDS: OXYBUTYNIN CHL 5 MG TAB PO SCH ×2 (06:05→14:04)
[2019-12-12] MEDS: ACCU-CHEK COMFORT CURVE STRIP VI SCH ×3 (06:05→16:47)
[2019-12-12 09:15] VITALS: BP 111/77
[2019-12-12] MEDS: DOCUSATE SOD 100 MG CAP PO SCH (09:35)
[2019-12-12] MEDS: QUEtiapine FUMARATE 25 MG TAB PO SCH (09:35)
[2019-12-12] MEDS: ASPirin 81 mg TAB PO SCH (09:36)
[2019-12-12] MEDS: risperiDONE 1 MG TAB PO SCH (09:36)
[2019-12-12] MEDS: amLODIPine BESYLATE 5 MG TAB PO SCH (09:36)
[2019-12-12] MEDS: LOSARTAN POTASSIUM 50 MG TAB PO SCH (09:36)
[2019-12-12 14:15] VITALS: BP 124/72
[2019-12-12 14:34] VITALS: BP 111/77
== END 2019-12-12 18:00 | disposition hospice, home (50) | DRG 56 ==
LOC: ER 13:40 → EDBD 13:40 → TELE 13:41 → TELE-WESTW 20:20
PROVIDERS: ADMIT Internal Medicine; ATTEND Family Medicine
DX: G30.9 Alzheimer's disease, unspecified (principal); G93.41 Metabolic encephalopathy; N39.0 Urinary tract infection, site not specified; N13.8 Other obstructive and reflux uropathy; I10 Essential (primary) hypertension; E03.9 Hypothyroidism, unspecified; M51.36 Other intervertebral disc degeneration, lumbar region; M43.10 Spondylolisthesis, site unspecified; E11.9 Type 2 diabetes mellitus without complications; F02.80 Dementia in other diseases classified elsewhere, unspecified severity, without behavioral disturbance, psychotic disturbance, mood disturbance, and anxiety; R62.7 Adult failure to thrive; F32.9 Major depressive disorder, single episode, unspecified; N40.1 Benign prostatic hyperplasia with lower urinary tract symptoms; M54.5 Low back pain; E86.0 Dehydration; Z88.8 Allergy status to other drugs, medicaments and biological substances; Z79.899 Other long term (current) drug therapy; Z90.49 Acquired absence of other specified parts of digestive tract; Z79.82 Long term (current) use of aspirin; Z83.3 Family history of diabetes mellitus; Z79.84 Long term (current) use of oral hypoglycemic drugs
CPT/HCPCS: 36415; 70450; 71045; 72128; 72131; 74176; 76775; 80053; 81001; 82962; 83036; 83735; 84132; 84439; 84443; 84484; 85025; 85610; 85730; 87081; 87086; 90471; 90715; 93005; 93306; 95819; 96365; 96366; 97110; 97116; 97163; 97530; G0378; J0696; J1815; J3490